=== PATIENT | male | born 1995 | race Caucasian/White ===

== ENCOUNTER 2022-05-20 00:17 | Emergency (ER) | payer OTHER, SELFPAY ==
[2022-05-20 00:19] VITALS: BP 161/115; PULSE 78; RESP 16; TEMP 36; O2SAT 98; BMI 31.3
[2022-05-20] MEDS: Ibuprofen 600 MG Tablet PO (00:47)
[2022-05-20] MEDS: diazePAM 5 MG Tablet PO (00:47)
--- NOTE | 2022-05-20 01:01 | EDS_ITS ---
HPI History of Present Illness Chief Complaint: Other, Pain/Inj Informant: patient Narrative Narrative: Patient presenting neck pain spasms and tightness since around 4:30 PM. He is laying on trampoline at 4 PM, his brother came up fell on him. Tightness started 30 minutes later. No pain down the arms or. Any paresthesias. He is use [id number] Lidoderm patch with no relief currently. Denies allergies. No history gastric ulcers or kidney injury. Denies any history of similar. [facility] Medical History Hernia Home Medications diazepam 5 mg tablet 5 mg PO Q8 PRN Muscle Spasm #12 tabs 05/20/22 [Rx Last Taken Unknown] ibuprofen 600 mg tablet 600 mg PO 4X/DAY PRN Pain Or Fever #20 tabs 05/20/22 [Rx Last Taken Unknown] Allergy/AdvReac Type Severity Reaction Status Date / Time No Known Allergies Allergy Verified 05/20/22 00:20 Social History Smoking Status: Never smoker ROS ROS ED Constitutional Constitutional ED: Denies chills, fever(s) or sweats Eyes Eyes: Denies change in vision ENT ENT ED: Denies dysphagia or sore throat Cardiovascular Cardiovascular: Denies chest pain, leg edema, palpitations or racing heartbeat Respiratory/Chest Respiratory/Chest: Denies cough, dyspnea or dyspnea on exertion Gastrointestinal Gastrointestinal: Denies abdominal pain, diarrhea, nausea or vomiting Genitourinary Genitourinary ED: Denies dysuria, hematuria or urinary frequency Musculoskeletal Musculoskeletal: Reports neck pain; Denies back pain or extremity pain Integumentary Denies rash or wounds Neurologic Neurologic: Denies headache(s), paresthesias or weakness EXAM Physical Exam Const Vital Signs: 05/20/22 00:19 05/20/22 00:49 Temperature 96.8 F L Temperature Source Temporal Pulse Rate 78 Respiratory Rate 16 Respiratory Effort Normal Non-Labored Respiratory Pattern Normal Blood Pressure 161/115 H Blood Pressure Mean 130 Pulse Ox 98 Oxygen Delivery Method Room Air Positive well nourished and well developed General Appearance ED: well developed and NAD HEENT Reports moist mucous membranes normocephalic and atraumatic Eyes PERRL, EOMs intact bilaterally and conjunctivae normal General Eye ED: Yes normal appearance of both eyes Neck no lymphadenopathy and supple Neck Narrative: no midline tenderness or step-offs. Pain patch noted lower cervical upper thoracic. There is bilateral paracervical tenderness with increasing tension. Upper extremity strength is intact and symmetric. Pulses intact distally in the upper extremities. General: Negative for tenderness Chest Wall Chest: Negative for tenderness Resp normal respiratory effort and normal air movement Effort and Inspection: symmetric chest movement; Negative for respiratory distress Cardio regular rate, regular rhythm and no murmurs Peripheral Pulses: pulses 2+ throughout GI normal to inspection, nondistended, normoactive bowel sounds and non-tender Palpation: Negative for guarding or rebound tenderness present Back/Spine no CVA tenderness and no thoracic nor lumbar tenderness Extremity normal to inspection General Extremety ED: Negative for edema or tenderness General Extremity: Negative for edema Neuro oriented x3 and no sensory deficits noted Sensorium / Orientation: awake and alert Skin no rashes or lesions noted and no wounds MDM MDM MDM Narrative Medical decision making narrative: Patient no midline bony tenderness cervical strain with torticollis symptoms. Ibuprofen and Valium was started. He will follow-up as an outpatient. All questions were answered. Discharge Plan Triage Chief Complaint: Other, Pain/Inj ED Provider: Elian Sanchez Dx/Rx/DC Orders Clinical Impression: Acute torticollis, Cervical strain, acute Instructions: Torticollis (Wry Neck), ED Neck Sprain or Strain Prescriptions: New diazepam [diazepam] 5 mg tablet 5 mg PO Q8 PRN (Reason: Muscle Spasm) Qty: 12 0RF ibuprofen 600 mg tablet 600 mg PO 4X/DAY PRN (Reason: Pain Or Fever) Qty: 20 0RF Primary Care Provider: Care Physician,No Primary Referrals: NOT,DEFINED [Non-Staff] - Activity Restrictions/Additional Instructions: Take medications as prescribed. Follow-up with your doctor. Disposition Disposition: Home, Self Care
[2022-05-20] MEDS: Ondansetron ODT 4 MG Tablet PO (01:16)
== END 2022-05-20 01:19 | disposition home or self-care (01) ==
PROVIDERS: Emergency Provider Emergency Medicine; Visit Provider Emergency Medicine
DX: M43.6 Torticollis (principal); S16.1XXA Strain of muscle, fascia and tendon at neck level, initial encounter; W19.XXXA Unspecified fall, initial encounter
CPT/HCPCS: 99284